=== PATIENT | male | born 1960 | race Caucasian/White ===

== ENCOUNTER 2021-04-12 01:58 | Emergency (ER) | payer SELFPAY ==
[2021-04-12] MEDS ORDERED: D5W 1,000 ML IV ONE (02:28)
[2021-04-12] MEDS ORDERED: activated charcoaL 25 GM/120 ML TUBE ONE (02:58)
[2021-04-12 03:09] LABS: MPV 10.1 fL (7.6-11.3)
[2021-04-12 03:17] LABS: Absolute Lymphocytes (CBC) 4.4 K/uL (0.7-4.9); Basophils % 0.8 % (0-1.3); Hematocrit 41.2 % (39.6-49.0); Lymphocytes % 41.4 % (15.3-44.8); RBC Red Blood Cell Count 4.53 M/uL (4.33-5.43)
[2021-04-12 03:32] LABS: ALT/SGPT 44 U/L (12-78); AST/SGOT 19 U/L (15-37); Albumin 3.6 g/dL (3.4-5.0); Alkaline Phosphatase 108 U/L (45-117); BUN Blood Urea Nitrogen 10 mg/dL (7-18); Bicarbonate 28 mmol/L (21-32); Bilirubin Direct < 0.1 mg/dL (0-0.2); Bilirubin Total 0.3 mg/dL (0.2-1.0); Potassium 3.8 mmol/L (3.5-5.1); Protein, Total 6.7 g/dL (6.4-8.2); Sodium Level 136 mmol/L (136-145)
[2021-04-12 03:33] LABS: Glucose Level 488 mg/dL (74-106)
[2021-04-12 03:59] LABS: Protime INR 0.93
[2021-04-12] MEDS ORDERED: NA CHLORIDE 0.9% IV ONE (04:00)
[2021-04-12] MEDS ORDERED: NALOXONE 2 MG in NA CHLORIDE 0.9% 500 ML IV ONE (04:00)
[2021-04-12] MEDS ORDERED: NALOXONE IV ONE (04:00)
[2021-04-12] MEDS ORDERED: NA CHLORIDE 0.9% 1,000 ML ONE ×2 (04:36→06:22)
[2021-04-12 04:45] LABS: Urine Blood Negative (Negative); Urine Glucose 2+ (Negative); Urine Protein Negative (Negative); Urine pH 5.5 (5.0-7.0)
[2021-04-12 05:16] LABS: Barbiturates NEGATIVE (NEGATIVE); Benzodiazepines NEGATIVE (NEGATIVE); Cocaine NEGATIVE (NEGATIVE); METHAMPHETAM NEGATIVE (NEGATIVE); Methadone NEGATIVE (NEGATIVE); Opiates POSITIVE (NEGATIVE); Phencyclidine NEGATIVE (NEGATIVE); THC Cannibis NEGATIVE (NEGATIVE)
[2021-04-12] MEDS ORDERED: ONDANSETRON 4 MG/2 ML VIAL ONE (06:19)
[2021-04-12] MEDS ORDERED: Acetylcysteine 6000mg/30mL IV ONE ×2 (06:23→06:30)
[2021-04-12] MEDS ORDERED: D5W 100 ML IV ONE (06:25)
--- NOTE | 2021-04-12 06:42 | ER ---
Nurse's Notes [facility]ly [facility] Name: Thomas Ewing Age: 61 yrs Sex: Male : 1960 Arrival Date: 04/12/2021 Time: 02:04 Bed 4 Private MD: Diagnosis: Suicidal ideations-overdose acetamenophen. overdose opiate ;Altered mental status, unspecified Presentation: 04/12 02:05 Chief complaint: Patient states: Pt states he has parkinsons and has been in a lot of wg pain and just wanted to end everything. Pt states he had 3 drinks this morning/evening. Pt denies SOB, CP, N/V/D, Abd pain. * Poison Control was contacted on scene and called ED provider [facility]. EMS states: Per EMS, they were called out for an ingestion/overdose. EMS stated they found a bottle labeled Hydrocode 10/650 Qty 100 that was recently prescribed to someone other than the patient. EMS stated the bottle had crushed pills and approximated that the patient ingested 90% of the bottle and was ingested around 0100 this morning. BG 400+ in the field, IV access in both extremities with approx 600ml NS admin. Pt remained A\\T\\Ox4, maintained O2 sats in the field, sinus tach in the field and hemodynamically stable. Coronavirus screen: Vaccine status: Patient reports being unvaccinated. Client denies travel out of the [place] in the last 14 days. At this time, the client does not indicate any symptoms associated with coronavirus-19. Ebola Screen: Patient negative for fever greater than or equal to 101.5 degrees Fahrenheit, and additional compatible Ebola Virus Disease symptoms Patient denies exposure to infectious person. Patient denies travel to an Ebola-affected area in the 21 days before illness onset. Initial Sepsis Screen: Does the patient meet any 2 criteria? No. Patient's initial sepsis screen is negative. Does the patient have a suspected source of infection? No. Patient's initial sepsis screen is negative. Risk Assessment: Do you want to hurt yourself or someone else? Patient reports no desire to harm self or others. Onset of symptoms was April 12, 2021 at 00:00. Care prior to arrival:. 02:05 Method Of Arrival: EMS: [facility] 02:05 Acuity: ELEANOR 3 wg 02:45 Acuity: ELEANOR 2 em Triage Assessment: 02:17 General: Appears comfortable, obese, well groomed, well developed, Behavior is calm, wg cooperative, appropriate for age. Pain: Denies pain. Historical: - Allergies: 02:17 PENICILLINS; wg - PMHx: 02:17 Parkinson's disease; Arthritis; wg - Immunization history:: Client reports having NOT received the Covid vaccine. - Social history:: Patient uses alcohol, Patient/guardian denies using street drugs, IV drugs, caffeine, The patient lives with family, with spouse, Smoking status: Patient denies any tobacco usage or history of. Patient uses alcohol, on a daily basis. - Code Status:: Full code. Screenin:21 Abuse screen: Denies threats or abuse. Denies injuries from another. Nutritional wg screening: No deficits noted. Tuberculosis screening: No symptoms or risk factors identified. Fall Risk Secondary diagnosis (15 points) Ingestion of narcotics. Mental Status- Oriented to own ability (0 pts). Assessment: 02:13 Reassessment: received a phone call from poison control stating a 61/M had taken em 100-120 Gracey 10/650 mg tabs, observe for [employer] depression and respiratory depression, pt might need Narcan drip, Mucomyst, and activated charcoal if pt is awake and alert, collect tox work up, case # [id number]. 02:21 Reassessment: It was noted that patient had white substance on lips upon arrival. wg Cardiovascular: No deficits noted. Rhythm is sinus tachycardia. Respiratory: Airway is patent Trachea midline Respiratory effort is even, unlabored, Respiratory pattern is regular, symmetrical, Breath sounds are clear bilaterally. GI: No deficits noted. : No deficits noted. 03:10 Reassessment: No changes from previously documented assessment. Patient is alert, wg oriented x 3, equal unlabored respirations, skin warm/dry/pink. Pt drowsy but arousable to verbal stimuli and A\\T\\Ox4. Narcan drip infusing per order. Patient denies pain at this time. 03:17 Neuro: Level of Consciousness is awake, alert, obeys commands, Oriented to person, wg place, time, situation, Appropriate for age Speech is normal, Pupils are PERRLA, constricted. 03:54 Reassessment: Patient appears in no apparent distress at this time. No changes from wg previously documented assessment. Patient is alert, oriented x 3, equal unlabored respirations, skin warm/dry/pink. Reassessment: Pt drowsy but easily arousable with verbal stimuli. Cardiovascular: No deficits noted. Respiratory: No deficits noted. GI: No deficits noted. 04:33 Reassessment: Patient appears in no apparent distress at this time. No changes from previously documented assessment. Patient is alert, oriented x 3, equal unlabored respirations, skin warm/dry/pink. Cardiovascular: No deficits noted. Respiratory: No deficits noted. GI: No deficits noted. 05:30 Reassessment: Poison Control called for a follow-up. PC recommended titrating down wg and/or stopping the narcan drip given current VS, responsiveness and labs and history. PC recommended that the pt should be monitored for at least 6 hours from stopping the Narcan drip. 05:33 Reassessment: Patient appears in no apparent distress at this time. Pt drowsy but wg arousable to voice. Pt A\\T\\Ox4. resting with eyes closed and occasional snoring. 05:41 Reassessment: Narcan weaned and stopped at 0545am per Dr. Issa. 06:06 Reassessment: Patient appears in no apparent distress at this time. No changes from previously documented assessment. Patient is alert, oriented x 3, equal unlabored respirations, skin warm/dry/pink. Pt sleeping/snoring but arouses with verbal stimuli. 06:36 Reassessment: Patient appears in no apparent distress at this time. No changes from previously documented assessment. Pt remains responsive to voice and drowsy/sleepy. 06:59 Reassessment: Patient appears in no apparent distress at this time. No changes from previously documented assessment. Patient is alert, oriented x 3, equal unlabored respirations, skin warm/dry/pink. Sleepy but very arousable with verbal stimuli. A\\T\\Ox4. Patient denies pain at this time. 07:11 General: Reports " I just feel a little weird" Patient states that he has a history of tw5 pain, Parkinson's and diabetes. He otherwise lives alone besides his [place] chung dog. Pain: Denies pain. 07:59 General: Appears in no apparent distress. Behavior is drowsy. tw5 Vital Signs: 02:05 BP 118 / 88; Pulse 107; Resp 13; Temp 98.9; Pulse Ox 92% 2 lpm ; Weight 92.53 kg; wg Height 5 ft. 10 in. (177.80 cm); Pain 0/10; 02:45 BP 106 / 76; Pulse 105; Resp 14; Pulse Ox 94% on 2 lpm NC; wg 03:00 BP 123 / 84; Pulse 108; Resp 14; Pulse Ox 94% on 2 lpm NC; wg 03:30 BP 115 / 80; Pulse 94; Resp 14; Pulse Ox 96% on 2 lpm NC; Pain 0/10; wg 03:58 BP 108 / 70; Pulse 100; Resp 13; Pulse Ox 96% on 2 lpm NC; Pain 0/10; wg 04:31 BP 111 / 79; Pulse 98; Resp 14; Pulse Ox 96% on 2 lpm NC; wg 04:58 BP 120 / 75; Pulse 94; Resp 15; Pulse Ox 96% on 2 lpm NC; Pain 0/10; wg 05:32 BP 108 / 74; Pulse 92; Resp 15; Pulse Ox 98% on 2 lpm NC; Pain 0/10; wg 06:05 BP 137 / 85; Pulse 108; Resp 14; Pulse Ox 98% on 2 lpm NC; Pain 0/10; wg 06:34 BP 119 / 79; Pulse 102; Resp 13; Pulse Ox 96% on 2 lpm NC; Pain 0/10; wg 06:58 BP 124 / 83; Pulse 102; Resp 14; Pulse Ox 98% on 2 lpm NC; Pain 0/10; wg 07:11 BP 103 / 65; Pulse 106; Resp 17; Pulse Ox 100% on R/A; Pain 0/10; tw5 07:52 BP 115 / 77; Pulse 112; Resp 10; Pulse Ox 94% on 4 lpm NC; Pain 0/10; tw5 02:05 Body Mass Index 29.27 (92.53 kg, 177.80 cm) wg Vitals: 02:21 Cardiac Rhythm Assessment Regular Sinus tach. wg 03:58 Cardiac Rhythm Assessment Regular Sinus tach. wg 05:32 Cardiac Rhythm Assessment Regular Sinus rhythm. wg Dennis Coma Score: 02:21 Eye Response: spontaneous(4). Verbal Response: oriented(5). Motor Response: obeys wg commands(6). Total: 15. 03:58 Eye Response: spontaneous(4). Verbal Response: oriented(5). Motor Response: obeys wg commands(6). Total: 15. 05:32 Eye Response: spontaneous(4). Verbal Response: oriented(5). Motor Response: obeys wg commands(6). Total: 15. ED Course: 02:04 Patient arrived in ED. wg 02:04 Jarred Becerra MD is Attending Physician. ma2 02:16 Acetaminophen Sent. jb4 02:16 Basic Metabolic Panel Sent. jb4 02:16 CBC with Diff Sent. jb4 02:17 Triage completed. wg 02:17 ETOH Level Sent. jb4 02:17 Hepatic Function Sent. jb4 02:17 PT-INR Sent. jb4 02:17 Ptt, Activated Sent. jb4 02:17 Salicylate Sent. jb4 02:17 Arm band placed on left wrist. wg 02:19 Maintain EMS IV. Dressing intact. Good blood return noted. Site clean \\T\\ dry. Gauge \\T\\ wg site: 18g Right AC. Maintain EMS IV. 20g. Left Hand. Oxygen administration via nasal cannula \\T\\ 2L/min. 02:19 Patient has correct armband on for positive identification. Placed in gown. Bed in low wg position. Call light in reach. Side rails up X2. bus driver/monitor on. Pulse ox on. NIBP on. Patient is placed in psych hold. 02:39 Ajay Schumacher, RN is Primary Nurse. wg 02:42 No provider procedures requiring assistance completed. cw2 03:13 Acetaminophen Sent. wg 03:13 Basic Metabolic Panel Sent. wg 03:13 CBC with Diff Sent. wg 03:14 ETOH Level Sent. wg 03:14 Hepatic Function Sent. wg 03:14 PT-INR Sent. wg 03:14 Ptt, Activated Sent. wg 03:14 Salicylate Sent. wg 04:57 SARS-COV-2 RT PCR Sent. wg 04:58 Urine Drug Screen Sent. wg 05:17 Acetaminophen: draw blood at 5:30 please (4 hrs from ingestion) Sent. wg 05:46 initiated a transfer with Roseann from [facility] Transfer [place]. mw2 06:11 [facility] denied due to capacity. mw2 06:14 initiated a transfer with Nupur from [facility] [place]. mw2 06:18 [facility] denied due to capactiy. mw2 06:21 initiated a transfer with Randy from [facility]. mw2 06:[address] Becerra with the Doctor from [facility]. mw2 06:49 administrative approval given by Yeny Ortega/ patient has been accepted to [address] bed 223/ Dr. Pitt accepted the patient in transfer/ report to be called to [phone]. 07:11 Resting quietly. Awaiting: awaiting medication from pharmacy. tw5 07:11 Noise minimized. Lights dimmed. Verbal reassurance given. 07:15 Primary Nurse role handed off by Ajay Schumacher, FEDE tw 07:15 Stacie Duong is Primary Nurse. tw5 07:58 Awaiting: Awaiting medication from Pharmacy. Order faxed. 08:34 bleeding controlled, No redness/swelling at site. Pressure dressing applied. tw5 Administered Medications: 02:15 Drug: Activated Charcoal Suspension (50 g/240 mL) 50 grams Route: PO; 05:45 Follow up: Response: No adverse reaction 02:16 Drug: NARcan (naloxone) 5 mg Route: IVP; Rate: 5 mg/hr; Site: right antecubital; jb4 05:44 Follow up: Response: No adverse reaction 06:00 Drug: MucoMYST - Acetylcysteine 150 mg/kg Route: IV; Rate: calculated rate; Infused wg Over: 1 hrs; Site: right antecubital; 07:16 Follow up: Response: No adverse reaction; IV Status: Completed infusion tw5 09:00 Drug: MucoMYST - Acetylcysteine 50 mg/kg {Note: transported with patient to [facility].} tw5 Route: IV; Rate: calculated rate; Site: left antecubital; 09:00 Follow up: IV Status: Infusion continued upon transfer tw Outcome: 06:41 ER care complete, transfer ordered by . ma2 08:34 Transferred by ground EMS to [facility]. tw5 08:34 Condition: stable 08:34 Discharge instructions given to EMS. 09:01 Patient left the ED. tw5 Signatures: Dajuan Mehta RN RN Rd Bravo RN RN 4 Jarred Becerra MD MD [facility] Arturo Truong [facility] Ajay Schumacher RN Onesimo Moran RN RN 2 Stacie Duong tw5 Corrections: (The following items were deleted from the chart) 02:18 02:17 Allergies: No Known Allergies; [facility] 02:41 02:15 Activated Charcoal Suspension (50 g/240 mL) 0.5 g/kg PO [facility] 02:43 02:05 Chief complaint: Patient states: Pt states he has parkinsons and has been in a wg lot of pain and just wanted to end everything. Pt denies SOB, CP, N/V/D, Abd pain. EMS states: Per EMS, they were called out for an ingestion/overdose. EMS stated they found a bottle labeled Hydrocode 10/650 Qty 100 that was recently prescribed to someone other than the patient. EMS stated the bottle had crushed pills and approximated that the patient ingested 90% of the bottle and was ingested around 0100 this morning. BG 400+ in the field, IV access in both extremities with approx 600ml NS admin. Pt remained A\\T\\Ox4, maintained O2 sats in the field, sinus tach in the field and hemodynamically stable. 03:08 02:25 ACETAMINOPHEN+C.LAB.BRZ drawn and sent. EDMS 03:08 02:26 BASIC METABOLIC PANEL+C.LAB.BRZ drawn and sent. EDMS 03:08 02:26 CBC+H.LAB.BRZ drawn and sent. EDMS 03:08 02:26 ETHANOL+C.LAB.BRZ drawn and sent. EDMS 03:08 02:26 HEPATIC FUNCTION+C.LAB.BRZ drawn and sent. EDMS 03:08 02:26 PROTIME (+INR)+COAG.LAB.BRZ drawn and sent. EDMS 03:08 02:26 PTT, ACTIVATED+COAG.LAB.BRZ drawn and sent. EDMS 03:08 02:26 SALICYLATE+C.LAB.BRZ drawn and sent. EDMS 03:16 02:05 Chief complaint: Patient states: Pt states he has parkinsons and has been in a wg lot of pain and just wanted to end everything. Pt states he had 3 drinks this morning/evening. Pt denies SOB, CP, N/V/D, Abd pain. EMS states: Per EMS, they were called out for an ingestion/overdose. EMS stated they found a bottle labeled Hydrocode 10/650 Qty 100 that was recently prescribed to someone other than the patient. EMS stated the bottle had crushed pills and approximated that the patient ingested 90% of the bottle and was ingested around 0100 this morning. BG 400+ in the field, IV access in both extremities with approx 600ml NS admin. Pt remained A\\T\\Ox4, maintained O2 sats in the field, sinus tach in the field and hemodynamically stable. wg 06:54 06:[address] Becerra with the Doctor from [facility] mw2 mw2
--- NOTE | 2021-04-12 06:42 | EDPHYS ---
Physician Documentation [facility] Name: Thomas Ewing Age: 61 yrs Sex: Male : 1960 Arrival Date: 04/12/2021 Time: 02:04 Bed 4 Private MD: ED Physician Jarred Becerra HPI: 04/12 02:08 This 61 yrs old Male presents to ER via Unassigned with complaints of SI, ma2 overdose. 02:08 Onset: The symptoms/episode began/occurred suddenly, 1 hour(s) ago. Severity of ma2 symptoms: At their worst the symptoms were moderate in the emergency department the symptoms are unchanged. The patient has experienced similar episodes in the past. Has history of Parkinson, he has been feeling depressed, suicidal, he overdosed his [place], he had a bottle that had about 100 pill of 5 mg [place], he crushed the mall and swallowed them about 30 minutes ago, no other congestion. Patient is ANO x4 at this time.. Historical: - Allergies: 02:17 PENICILLINS; wg - PMHx: 02:17 Parkinson's disease; Arthritis; wg - Immunization history:: Client reports having NOT received the Covid vaccine. - Social history:: Patient uses alcohol, Patient/guardian denies using street drugs, IV drugs, caffeine, The patient lives with family, with spouse, Smoking status: Patient denies any tobacco usage or history of. Patient uses alcohol, on a daily basis. - Code Status:: Full code. ROS: 02:08 Constitutional: Negative for fever, chills, and weight loss. ma2 02:08 All other systems are negative. Exam: 02:08 Constitutional: This is a well developed, well nourished patient who is awake, alert, ma2 and in no acute distress. Head/Face: Normocephalic, atraumatic. Eyes: Pupils equal round and reactive to light, extra-ocular motions intact. Lids and lashes normal. Conjunctiva and sclera are non-icteric and not injected. Cornea within normal limits. Periorbital areas with no swelling, redness, or edema. ENT: Nares patent. No nasal discharge, no septal abnormalities noted. Tympanic membranes are normal and external auditory canals are clear. Oropharynx with no redness, swelling, or masses, exudates, or evidence of obstruction, uvula midline. Mucous membranes moist. Neck: Trachea midline, no thyromegaly or masses palpated, and no cervical lymphadenopathy. Supple, full range of motion without nuchal rigidity, or vertebral point tenderness. No Meningismus. Chest/axilla: Normal chest wall appearance and motion. Nontender with no deformity. No lesions are appreciated. Cardiovascular: Regular rate and rhythm with a normal S1 and S2. No gallops, murmurs, or rubs. Normal PMI, no JVD. No pulse deficits. Respiratory: Lungs have equal breath sounds bilaterally, clear to auscultation and percussion. No rales, rhonchi or wheezes noted. No increased work of breathing, no retractions or nasal flaring. Abdomen/GI: Soft, non-tender, with normal bowel sounds. No distension or tympany. No guarding or rebound. No evidence of tenderness throughout. Back: No spinal tenderness. No costovertebral tenderness. Full range of motion. Skin: Warm, dry with normal turgor. Normal color with no rashes, no lesions, and no evidence of cellulitis. MS/ Extremity: Pulses equal, no cyanosis. Neurovascular intact. Full, normal range of motion. Neuro: Awake and alert, GCS 15, oriented to person, place, time, and situation. Cranial nerves II-XII grossly intact. Motor strength 5/5 in all extremities. Sensory grossly intact. Cerebellar exam normal. Normal gait. 02:08 Psych: Behavior/mood is suicidal, depressed, Affect is flat, Oriented to Vital Signs: 02:05 BP 118 / 88; Pulse 107; Resp 13; Temp 98.9; Pulse Ox 92% 2 lpm ; Weight 92.53 kg; wg Height 5 ft. 10 in. (177.80 cm); Pain 0/10; 02:45 BP 106 / 76; Pulse 105; Resp 14; Pulse Ox 94% on 2 lpm NC; wg 03:00 BP 123 / 84; Pulse 108; Resp 14; Pulse Ox 94% on 2 lpm NC; wg 03:30 BP 115 / 80; Pulse 94; Resp 14; Pulse Ox 96% on 2 lpm NC; Pain 0/10; wg 03:58 BP 108 / 70; Pulse 100; Resp 13; Pulse Ox 96% on 2 lpm NC; Pain 0/10; wg 04:31 BP 111 / 79; Pulse 98; Resp 14; Pulse Ox 96% on 2 lpm NC; wg 04:58 BP 120 / 75; Pulse 94; Resp 15; Pulse Ox 96% on 2 lpm NC; Pain 0/10; wg 05:32 BP 108 / 74; Pulse 92; Resp 15; Pulse Ox 98% on 2 lpm NC; Pain 0/10; wg 06:05 BP 137 / 85; Pulse 108; Resp 14; Pulse Ox 98% on 2 lpm NC; Pain 0/10; wg 06:34 BP 119 / 79; Pulse 102; Resp 13; Pulse Ox 96% on 2 lpm NC; Pain 0/10; wg 06:58 BP 124 / 83; Pulse 102; Resp 14; Pulse Ox 98% on 2 lpm NC; Pain 0/10; wg 07:11 BP 103 / 65; Pulse 106; Resp 17; Pulse Ox 100% on R/A; Pain 0/10; tw5 07:52 BP 115 / 77; Pulse 112; Resp 10; Pulse Ox 94% on 4 lpm NC; Pain 0/10; tw5 02:05 Body Mass Index 29.27 (92.53 kg, 177.80 cm) wg [place] Coma Score: 02:21 Eye Response: spontaneous(4). Verbal Response: oriented(5). Motor Response: obeys commands(6). Total: 15. 03:58 Eye Response: spontaneous(4). Verbal Response: oriented(5). Motor Response: obeys commands(6). Total: 15. 05:32 Eye Response: spontaneous(4). Verbal Response: oriented(5). Motor Response: obeys commands(6). Total: 15. MDM: 02:07 Patient medically screened. ma2 02:08 Differential Diagnosis Hydrocodone overdose, suicidal ideation, versus other ma2 coingestions. Poison control has been contacted and they recommend Narcan drip, activated charcoal.. 06:00 ED course: Patient is somnolent, arousable to verbal stimulus, protecting his airway. ma2 We started Narcan drip as recommended by the poison control center. We called the poison control again to get another further recommendation, and they advised to DC Narcan since patient is protecting airway at this time. 4 hours acetaminophen level came elevated above the treatment line for NAC. We will start Mucomyst, first dose of 150 mg/kg over 1 hour to be given now, second dose of 50 mg/kg over 4 hours to start at 7 AM. . ED course: Patient needs to be transferred to higher level of care as he needs [place], medical ICU ICU, and psych consult for SI. The services are not available in our hospital will initiate transfer to higher level of care. To [facility]. Waiting for their call back. After the second dose Mucomyst is complete, patient will need third dose Mucomyst 100 mg/kg and 500 mL D5 water to be infused over 16 hours. i did not order this 3rd dose as I anticipate patient will be transferred before 11 am. I will sign out this patient to the upcoming ED team at 7 AM.. 06:38 Data reviewed: vital signs, nurses notes, EMS record. Counseling: I had a detailed me2 discussion with the patient and/or guardian regarding: the historical points, exam findings, and any diagnostic results supporting the discharge/admit diagnosis, the presence of at least one elevated blood pressure reading (>120/80) during this emergency department visit, the need to transfer to another facility. Response to treatment: the patient's symptoms have markedly improved after treatment. 04/12 02:06 Order name: Acetaminophen; Complete Time: 03:51 ma2 04/12 02:06 Order name: Basic Metabolic Panel; Complete Time: 03:51 ma2 04/12 02:06 Order name: CBC with Diff; Complete Time: 03:51 ma2 04/12 02:06 Order name: ETOH Level; Complete Time: 03:51 ma2 04/12 02:06 Order name: Hepatic Function; Complete Time: 03:51 ma2 04/12 02:06 Order name: PT-INR; Complete Time: 04:08 ma2 04/12 02:06 Order name: Ptt, Activated; Complete Time: 04:08 ma2 04/12 02:06 Order name: Salicylate; Complete Time: 03:51 ma2 04/12 02:06 Order name: Urine Drug Screen; Complete Time: 05:18 ma2 04/12 02:06 Order name: EKG; Complete Time: 02:07 ma2 04/12 02:07 Order name: EKG; Complete Time: 02:07 4 04/12 03:33 Order name: Acetaminophen: draw blood at 5:30 please (4 hrs from ingestion) ma2 04/12 03:34 Order name: Acetaminophen Level; Complete Time: 05:55 EDMS 04/12 04:06 Order name: SARS-COV-2 RT PCR; Complete Time: 05:57 EDMS 04/12 04:44 Order name: Urine Dipstick-Ancillary; Complete Time: 05:18 EDMS 04/12 02:07 Order name: EKG - Nurse/Tech; Complete Time: 02:08 jb4 04/12 02:07 Order name: IV Saline Lock; Complete Time: 02:08 jb4 04/12 02:07 Order name: Labs collected and sent; Complete Time: 02:08 jb4 04/12 02:07 Order name: Suicide Precautions; Complete Time: 02:08 jb4 04/12 02:07 Order name: Suicide Screening ([place]); Complete Time: 02:08 jb4 Administered Medications: 02:15 Drug: Activated Charcoal Suspension (50 g/240 mL) 50 grams Route: PO; 05:45 Follow up: Response: No adverse reaction 02:16 Drug: NARcan (naloxone) 5 mg Route: IVP; Rate: 5 mg/hr; Site: right antecubital; jb4 05:44 Follow up: Response: No adverse reaction 06:00 Drug: MucoMYST - Acetylcysteine 150 mg/kg Route: IV; Rate: calculated rate; Infused wg Over: 1 hrs; Site: right antecubital; 07:16 Follow up: Response: No adverse reaction; IV Status: Completed infusion tw5 09:00 Drug: MucoMYST - Acetylcysteine 50 mg/kg {Note: transported with patient to [facility].} tw5 Route: IV; Rate: calculated rate; Site: left antecubital; 09:00 Follow up: IV Status: Infusion continued upon transfer tw5 Disposition Summary: 04/12/21 06:41 [facility] Reason: Higher level of care ma2 Condition: Stable ma2 Problem: new ma2 Symptoms: are unchanged ma2 Accepting Physician: dr. Echevarria accepted the patient (04/12/21 09:01) tw5 Diagnosis - Suicidal ideations - overdose acetamenophen. overdose opiate ma2 - Altered mental status, unspecified ma2 Discharge Instructions: - Discharge Summary Sheet Forms: - Medication Reconciliation Form ma2 - SBAR form Signatures: Dispatcher [employer] EDMS Rd Bravo, RN RN jb4 Jarred Becerra MD MD ma2 Ajay Schumacher, FEDE Stacie Duong tw5 Corrections: (The following items were deleted from the chart) 02:10 02:06 EKG - Nurse/Tech ordered. [facility] jb4 02:10 02:06 IV Saline Lock ordered. [facility] jb4 02:10 02:06 Labs collected and sent ordered. [facility] jb4 02:10 02:06 Suicide Screening ([place]) ordered. [facility] jb4 02:10 02:06 Urine Dipstick-Ancillary ordered. [facility] jb4 02:18 02:17 Allergies: No Known Allergies; [facility] 03:08 02:07 ACETAMINOPHEN+C.LAB.BRZ ordered. EDMS EDMS 03:08 02:07 BASIC METABOLIC PANEL+C.LAB.BRZ ordered. EDMS EDMS 03:08 02:07 CBC+H.LAB.BRZ ordered. EDMS EDMS 03:08 02:07 ETHANOL+C.LAB.BRZ ordered. EDMS EDMS 03:08 02:07 HEPATIC FUNCTION+C.LAB.BRZ ordered. EDMS EDMS 03:08 02:07 PROTIME (+INR)+COAG.LAB.BRZ ordered. EDMS EDMS 03:08 02:07 PTT, ACTIVATED+COAG.LAB.BRZ ordered. EDMS EDMS 03:08 02:07 SALICYLATE+C.LAB.BRZ ordered. EDMS EDMS 03:09 02:07 URINE DRUG SCREEN+CHEM UR.LAB.BRZ ordered. EDMS EDMS 04:06 03:56 CORONAVIRUS+MR.LAB.BRZ ordered. EDMS EDMS 09:01 06:41 dr. Echevarria accepted the patient ma2 tw5
[2021-04-12] MEDS ORDERED: DEXTROSE 5% IV SCH (08:30)
[2021-04-12] MEDS ORDERED: ACETYLCYSTEINE IV SCH (08:30)
[2021-04-12] MEDS ORDERED: WATER IV SCH (08:30)
[2021-04-12 09:08] VITALS: TEMP 98.9
[2021-04-12 09:25] VITALS: BP 115/77; O2SAT 94
--- NOTE | 2021-04-12 16:43 | EKG ---
Test Date: 2021-04-12 Test Time: 02:01:57 Can Pusher: SCARLETT MEASUREMENT RESULTS: Intervals: Rate: 102 GA: 142 QRSD: 88 QT: 338 QTc: 440 [place]: P: 41 GA: 142 QRS: 51 T: 43 INTERPRETIVE STATEMENTS: Sinus tachycardia Otherwise normal ECG No previous ECG available for comparison Electronically Signed On 04-12-21 16:42:40 CDT by Fantasma Posey
== END 2021-04-12 09:01 | disposition short-term general hospital (02) ==
LOC: ER 01:58
DX: T50.992A Poisoning by other drugs, medicaments and biological substances, intentional self-harm, initial encounter (principal); G20 Parkinson's disease; Z88.0 Allergy status to penicillin; Z20.822 Contact with and (suspected) exposure to COVID-19
CPT/HCPCS: 36415; 80048; 80076; 80307; 80320; 80329; 81003; 85025; 85610; 85730; 93005; 99291; 99292; J0132; J2310; J2405; J7030; J7040; J7060; U0003